=== PATIENT | female | born 1975 | race African-American/Black ===

== ENCOUNTER 2018-03-28 23:44 | Emergency (ER) | payer OTHER ==
[~2018-03-28] VITALS: Ht 180.3 cm; Wt 94.8 kg
[2018-03-29 00:35] LABS: BASOPHIL % 0.5 % (0-2); PLATELET COUNT 373 x10^3mcL (130-400); RED CELL DISTRIBUTION WIDTH 13.9 % (11.5-14.5)
[2018-03-29 00:56] LABS: CALCIUM 8.9 mg/dL (8.5-10.1); CARBON DIOXIDE 26.1 mmol/L (21-32); CHLORIDE SERUM 104 mmol/L (98-107); CREATININE SERUM 0.8 mg/dL (0.6-1.0); GFR1 > 60 mL/min; GLUCOSE SERUM 108 mg/dL (74-106); POTASSIUM SERUM 3.7 mmol/L (3.5-5.1); SODIUM SERUM 138 mmol/L (136-145)
[2018-03-29 01:19] LABS: ALBUMIN 3.4 g/dL (3.4-5.0); ALKALINE PHOSPHATASE 56 U/L (46-116); ALT/SGPT 22 U/L (14-59); AST/SGOT 22 U/L (15-37); BILIRUBIN TOTAL 0.23 mg/dL (0.20-1.00); LIPASE 61 IU/L (73-393); TOTAL PROTEIN, SERUM 7.9 g/dL (6.4-8.2)
[2018-03-29 02:05] VITALS: BP 120/74
== END 2018-03-29 02:05 | disposition home or self-care (01) ==
LOC: ED 23:44
PROVIDERS: Emergency Medicine
DX: R51 Headache (principal); R11.10 Vomiting, unspecified; R19.7 Diarrhea, unspecified; R10.32 Left lower quadrant pain; Z88.6 Allergy status to analgesic agent; Z88.8 Allergy status to other drugs, medicaments and biological substances
CPT/HCPCS: J1200; J2765; J7030; Q0092

== ENCOUNTER 2018-04-04 21:48 | Emergency (ER) | payer OTHER ==
[~2018-04-04] VITALS: Ht 180.3 cm; Wt 95.7 kg
[2018-04-04 21:53] VITALS: Ht 180.3 cm; Wt 95.7 kg
[2018-04-04 23:09] VITALS: BP 121/83
== END 2018-04-04 23:04 | disposition home or self-care (01) ==
LOC: ED 21:48
DX: S92.531A Displaced fracture of distal phalanx of right lesser toe(s), initial encounter for closed fracture (principal); Z88.8 Allergy status to other drugs, medicaments and biological substances; Z88.6 Allergy status to analgesic agent; W22.8XXA Striking against or struck by other objects, initial encounter; Y93.89 Activity, other specified; Y92.89 Other specified places as the place of occurrence of the external cause; Y99.8 Other external cause status

== ENCOUNTER 2018-05-07 13:33 | Inpatient (IN) | payer OTHER ==
[~2018-05-07] VITALS: Ht 182.9 cm; Wt 91.8 kg
[2018-05-07 13:40] VITALS: Ht 182.9 cm; Wt 91.8 kg
[2018-05-07 14:31] LABS: BASOPHIL % 0.6 % (0-2); PLATELET COUNT 383 x10^3mcL (130-400); RED CELL DISTRIBUTION WIDTH 13.7 % (11.5-14.5)
[2018-05-07 14:33] LABS: CALCIUM 7.9 mg/dL (8.5-10.1); CARBON DIOXIDE 26.6 mmol/L (21-32); CHLORIDE SERUM 104 mmol/L (98-107); CREATININE SERUM 0.7 mg/dL (0.6-1.0); GFR1 > 60 mL/min; GLUCOSE SERUM 103 mg/dL (74-106); POTASSIUM SERUM 3.7 mmol/L (3.5-5.1); SODIUM SERUM 137 mmol/L (136-145)
[2018-05-07 15:47] LABS: CHOLESTEROL/HDL RATIO 2.8; MAGNESIUM 2.2 mg/dL (1.8-2.4); PHOSPHOROUS 3.3 mg/dL (2.5-4.9)
[2018-05-07 15:53] LABS: T3 TOTAL 1.12 ng/mL
[2018-05-07 15:58] LABS: FREE T4 1.03 ng/dL (0.76-1.46); FREE THYROXINE INDEX 2.3 ug/dL (1.4-4.5); T4(THYROXINE) 6.7 ug/dL (4.7-13.3)
[2018-05-07 16:03] VITALS: BP 122/73
[2018-05-07 17:25] VITALS: BP 124/80
[2018-05-07 21:18] VITALS: BP 108/71
[2018-05-08 05:57] VITALS: BP 107/54; BP 111/68
[2018-05-08 06:49] LABS: BASOPHIL % 0.5 % (0-2); PLATELET COUNT 341 x10^3mcL (130-400); RED CELL DISTRIBUTION WIDTH 13.8 % (11.5-14.5)
[2018-05-08 07:18] LABS: ALKALINE PHOSPHATASE 50 U/L (46-116); ALT/SGPT 18 U/L (14-59); AST/SGOT 18 U/L (15-37); BILIRUBIN TOTAL 0.3 mg/dL (0.20-1.00); CALCIUM 7.3 mg/dL (8.5-10.1); CARBON DIOXIDE 23.3 mmol/L (21-32); CHLORIDE SERUM 107 mmol/L (98-107); CREATININE SERUM 0.6 mg/dL (0.6-1.0); GFR1 > 60 mL/min; GLUCOSE SERUM 91 mg/dL (74-106); POTASSIUM SERUM 3.8 mmol/L (3.5-5.1); SODIUM SERUM 139 mmol/L (136-145); TOTAL PROTEIN, SERUM 6.6 g/dL (6.4-8.2)
[2018-05-08 07:20] LABS: ALBUMIN 2.8 g/dL (3.4-5.0)
[2018-05-08 09:32] VITALS: BP 127/97
[2018-05-08 13:34] VITALS: BP 127/97
== END 2018-05-08 14:35 | disposition home or self-care (01) | DRG 203 ==
LOC: ED 13:33 → DU 14:51
PROVIDERS: Emergency Medicine; Family Medicine
DX: R07.89 Other chest pain (principal); E83.51 Hypocalcemia; F41.9 Anxiety disorder, unspecified; R73.03 Prediabetes; D64.9 Anemia, unspecified; Z68.28 Body mass index [BMI] 28.0-28.9, adult; Z82.49 Family history of ischemic heart disease and other diseases of the circulatory system; Z88.6 Allergy status to analgesic agent; Z88.1 Allergy status to other antibiotic agents; Z98.51 Tubal ligation status
CPT/HCPCS: 83880; 84439; J3010; J7030; Q0092

== ENCOUNTER 2019-01-13 05:24 | Emergency (ER) | payer OTHER ==
[~2019-01-13] VITALS: Ht 180.3 cm; Wt 97.1 kg
[2019-01-13 05:30] VITALS: Ht 180.3 cm; Wt 97.1 kg
[2019-01-13 06:21] VITALS: BP 139/87
== END 2019-01-13 06:21 | disposition home or self-care (01) ==
LOC: ED 05:24
DX: M26.601 Right temporomandibular joint disorder, unspecified (principal); R03.0 Elevated blood-pressure reading, without diagnosis of hypertension; Z98.51 Tubal ligation status; Z88.6 Allergy status to analgesic agent; Z88.8 Allergy status to other drugs, medicaments and biological substances

== ENCOUNTER 2019-03-12 16:28 | Emergency (ER) | payer OTHER ==
[~2019-03-12] VITALS: Ht 180.3 cm; Wt 94.3 kg
[2019-03-12 16:44] VITALS: Ht 180.3 cm; Wt 94.3 kg
[2019-03-12 19:59] VITALS: BP 136/89
== END 2019-03-12 19:59 | disposition home or self-care (01) ==
LOC: ED 16:28
DX: S43.401A Unspecified sprain of right shoulder joint, initial encounter (principal); Z88.6 Allergy status to analgesic agent; Z98.51 Tubal ligation status; W10.9XXA Fall (on) (from) unspecified stairs and steps, initial encounter; Y93.89 Activity, other specified; Y92.89 Other specified places as the place of occurrence of the external cause; Y99.8 Other external cause status
CPT/HCPCS: J2001

== ENCOUNTER 2019-11-05 10:47 | Emergency (ER) | payer OTHER ==
[~2019-11-05] VITALS: Ht 172.7 cm; Wt 89.8 kg
[2019-11-05 11:03] VITALS: Ht 172.7 cm; Wt 89.8 kg
[2019-11-05 11:45] LABS: BASOPHIL % 0.5 % (0-2); PLATELET COUNT 364 x10^3mcL (130-400); RED CELL DISTRIBUTION WIDTH 13.8 % (11.5-14.5)
[2019-11-05 12:02] LABS: ALBUMIN 3.4 g/dL (3.4-5.0); AST/SGOT 17 U/L (15-37); BILIRUBIN TOTAL 0.39 mg/dL (0.20-1.00); CARBON DIOXIDE 29.7 mmol/L (21-32); CHLORIDE SERUM 104 mmol/L (98-107); CREATININE SERUM 0.7 mg/dL (0.6-1.0); GFR1 > 60 mL/min; GLUCOSE SERUM 97 mg/dL (74-106); SODIUM SERUM 141 mmol/L (136-145); TOTAL PROTEIN, SERUM 8.2 g/dL (6.4-8.2)
[2019-11-05 12:03] LABS: ALKALINE PHOSPHATASE 62 U/L (46-116); ALT/SGPT 32 U/L (14-59)
[2019-11-05 15:43] VITALS: BP 124/73
== END 2019-11-05 15:44 | disposition short-term general hospital (02) ==
LOC: ED 10:47
PROVIDERS: Emergency Medicine
DX: R07.89 Other chest pain (principal); Z98.51 Tubal ligation status; Z88.6 Allergy status to analgesic agent
CPT/HCPCS: 36415; J2270; Q0092